=== PATIENT | male | born 1980 | race Two or more races ===

== ENCOUNTER 2018-12-29 04:41 | Emergency (ER) ==
[~2018-12-29] VITALS: Ht 167.6 cm; Wt 77.1 kg
--- NOTE | 2018-12-29 05:00 | NUR ---
BIBSELF FROM HOME. AAOX4. NAD. AMBULATORY. C/O SOB X 3 DAYS. PT REPORTS THE HE HAS DX OF ASTHMA SINCE HE WAS A CHILD. PT HAS BEEN USING HIS INHALER BUT IS INEEFECTIVE AND WORST TODAY. NOTED BILATERAL LUNG WHEEZING. NO ACCESSORY MUSCLE USING. PT UNABLE TO TOLERATE LYING DOWN, PT IS JUST SITTING. TO ER BED 4. MD AT BEDSIDE FOR EVAL. AWAITING EVAL
[2018-12-29] MEDS ORDERED: predniSONE 20 MG TABLET ONE (05:06)
[2018-12-29] MEDS ORDERED: ALBUTEROL FS 2.5 MG/3 ML VIAL.NEB ONE (05:10)
[2018-12-29] MEDS ORDERED: IPRATROPIUM NEB FS 0.5 MG/2.5 ML AMPUL.NEB ONE (05:10)
--- NOTE | 2018-12-29 05:10 | NUR ---
RT AT BEDSIDE FOR TX
--- NOTE | 2018-12-29 05:15 | NUR ---
EKG AT BEDSIDE
--- NOTE | 2018-12-29 05:16 | NUR ---
EKG ORDER CANCELLED BY
[2018-12-29] MEDS ORDERED: ALBUTEROL FS 2.5 MG/3 ML VIAL.NEB CONTNEB ONE ×2 (05:30→06:00)
[2018-12-29] MEDS ORDERED: predniSONE 20 MG TABLET PO ONE (05:30)
[2018-12-29] MEDS ORDERED: IPRATROPIUM NEB FS 0.5 MG/2.5 ML AMPUL.NEB NEB ONE ×2 (05:30→06:00)
--- NOTE | 2018-12-29 06:00 | NUR ---
PT REFUSED 2ND DOSE OF BREATHING TX. AWARE
[2018-12-29 06:40] VITALS: BP 137/73
== END 2018-12-29 07:00 | disposition home or self-care (01) ==
LOC: ER 04:43
DX: J45.901 Unspecified asthma with (acute) exacerbation (principal); F17.210 Nicotine dependence, cigarettes, uncomplicated; Z98.890 Other specified postprocedural states
CPT/HCPCS: 94644; 99285; J7512

== ENCOUNTER 2019-01-01 02:37 | Emergency (ER) | payer OTHER ==
[~2019-01-01] VITALS: Ht 167.6 cm; Wt 72.6 kg
--- NOTE | 2019-01-01 02:55 | NUR ---
PRESENTED TO THE ER W/ C/O SOB. NOTED WITH DRY COUGH, AFEBRILE. DENIED ANY OTHER SYMPTOM OR PMH. PLACED ON A MONITOR , SATTING 96% ON R/A. WILL CONT TO MONITOR ,
--- NOTE | 2019-01-01 03:00 | NUR ---
CALLED RT FOR BREATHING TX
[2019-01-01] MEDS: IPRATROPIUM NEB FS 0.5 MG/2.5 ML AMPUL.NEB NEB ONE (03:01)
[2019-01-01] MEDS: ALBUTEROL FS 2.5 MG/3 ML VIAL.NEB CONTNEB ONE (03:01)
[2019-01-01] MEDS ORDERED: ALBUTEROL FS 2.5 MG/3 ML VIAL.NEB ONE (03:05)
[2019-01-01] MEDS ORDERED: IPRATROPIUM NEB FS 0.5 MG/2.5 ML AMPUL.NEB ONE (03:05)
[2019-01-01] MEDS ORDERED: predniSONE 20 MG TABLET ONE (03:20)
[2019-01-01] MEDS ORDERED: predniSONE 10 MG TABLET ONE (03:20)
[2019-01-01] MEDS: predniSONE 20 MG TABLET PO ONE (03:21)
--- NOTE | 2019-01-01 04:20 | NUR ---
Patient discharged to home in stable condition. RX AND Written and verbal after care instructions given. Patient verbalizes understanding of instruction.
[2019-01-01 04:33] VITALS: BP 127/87
== END 2019-01-01 04:34 | disposition home or self-care (01) ==
LOC: ER 02:39
DX: J45.901 Unspecified asthma with (acute) exacerbation (principal); F15.10 Other stimulant abuse, uncomplicated; F17.200 Nicotine dependence, unspecified, uncomplicated; Z98.890 Other specified postprocedural states
CPT/HCPCS: 94640; 99283; 99406; J7512 ×2

== ENCOUNTER 2021-10-02 08:06 | Emergency (ER) | payer OTHER ==
[~2021-10-02] VITALS: Ht 167.6 cm; Wt 71.7 kg
--- NOTE | 2021-10-02 08:15 | NUR ---
SENT TO E RBED 11. SOB X 3 DAYS, HX OF ASTHMA. "MY INHALER IS NOT WORKING." PT OXYGEN SATURATION 97% ROOM AIR. ATTACHED TO MONITOR. AWAITING MD SYED.
--- NOTE | 2021-10-02 08:20 | NUR ---
IV ESTABLISHED L AC 20G. LABS DRAWN AND COLLECTED. CONVERTED TO SALINE LOCK.
--- NOTE | 2021-10-02 08:21 | NUR ---
COVID TEST COLLECTED AND SENT
[2021-10-02] MEDS ORDERED: predniSONE 20 MG TABLET ONE (08:45)
[2021-10-02] MEDS ORDERED: ALBUTEROL FS 2.5 MG/3 ML VIAL.NEB CONTNEB ONE (09:00)
[2021-10-02] MEDS ORDERED: predniSONE 20 MG TABLET PO ONE (09:00)
[2021-10-02] MEDS ORDERED: IPRATROPIUM NEB FS 0.5 MG/2.5 ML AMPUL.NEB NEB ONE (09:00)
--- NOTE | 2021-10-02 09:00 | NUR ---
X RAY AT BEDSIDE
[2021-10-02] MEDS ORDERED: ALBUTEROL FS 2.5 MG/3 ML VIAL.NEB ONE (09:16)
[2021-10-02] MEDS ORDERED: IPRATROPIUM NEB FS 0.5 MG/2.5 ML AMPUL.NEB ONE (09:16)
[2021-10-02] MEDS ORDERED: PRED20TA PO (11:09)
[2021-10-02 11:23] VITALS: BP 144/82
--- NOTE | 2021-10-02 11:23 | NUR ---
IV removed. Catheter intact and site benign. Pressure and 4x4 applied to site. No bleeding noted.Patient discharged to home in stable condition. Written and verbal after care instructions given. Patient verbalizes understanding of instruction.
== END 2021-10-02 11:24 | disposition home or self-care (01) ==
LOC: ER 08:08
DX: J45.901 Unspecified asthma with (acute) exacerbation (principal); Z20.822 Contact with and (suspected) exposure to COVID-19; Z87.891 Personal history of nicotine dependence
CPT/HCPCS: 71045; 87426; 94644; 94799; 99285; C9803; J7512

== ENCOUNTER 2022-01-11 06:42 | Emergency (ER) | payer OTHER ==
[~2022-01-11] VITALS: Ht 167.6 cm; Wt 79.4 kg
[~2022-01-11 06:42] MED LIST: PRED20TA PO
--- NOTE | 2022-01-11 06:50 | NUR ---
TO ER BED 6. BIBS C/O ASTHMA ATTACK, PT DID NOT TAKE PRESCRIBED MEDS. RECENTLY DISCHARGED FROM [facility]. AAOX4. AMBULATORY. CONNECTED TO MONITOR. O2 SAT NOTED AT 95 ROOM AIR. HR 139. AWAITING MD SYED
[2022-01-11] MEDS ORDERED: methylPREDNISolone SOD SUCC 125 MG/2ML VIAL ONE (06:53)
--- NOTE | 2022-01-11 06:56 | NUR ---
PT REFUSED EKG. NOTIFIED.
[2022-01-11] MEDS ORDERED: ALBUTEROL FS 2.5 MG/3 ML VIAL.NEB NEB ONE ×2 (07:00→08:00)
[2022-01-11] MEDS ORDERED: methylPREDNISolone SOD SUCC 125 MG/2ML VIAL IV ONE (07:00)
[2022-01-11 07:06] VITALS: BP 133/77
[2022-01-11] MEDS ORDERED: ALBUTEROL FS 2.5 MG/3 ML VIAL.NEB ONE ×2 (07:08→07:45)
--- NOTE | 2022-01-11 07:08 | NUR ---
rt at bedside
--- NOTE | 2022-01-11 07:08 | NUR ---
pt refused to have iv access.
--- NOTE | 2022-01-11 07:12 | NUR ---
PT REFUSED EKG PER MD.
[2022-01-11] MEDS ORDERED: LEVALBUTEROL HCL NEB 1.25 MG/0.5 ML VIAL.NEB IH ONE (07:30)
[2022-01-11] MEDS ORDERED: IPRATROPIUM NEB FS 0.5 MG/2.5 ML AMPUL.NEB ONE (07:45)
--- NOTE | 2022-01-11 07:58 | NUR ---
PT REFUSED TO HAVE A REPEAT EKG. PT ELOPED FROM ER, LAST SEEN AT [phone].
[2022-01-11] MEDS ORDERED: IPRATROPIUM NEB FS 0.5 MG/2.5 ML AMPUL.NEB NEB ONE (08:00)
== END 2022-01-11 07:55 | disposition left against medical advice (07) ==
LOC: ER 06:44
DX: J45.901 Unspecified asthma with (acute) exacerbation (principal); R00.0 Tachycardia, unspecified; J45.909 Unspecified asthma, uncomplicated; F17.210 Nicotine dependence, cigarettes, uncomplicated; Z79.52 Long term (current) use of systemic steroids
CPT/HCPCS: 93005; 94640 ×2; 96374; 99285; J2930

== ENCOUNTER 2022-06-17 06:57 | Emergency (ER) | payer OTHER ==
[~2022-06-17] VITALS: Ht 167.6 cm; Wt 77.1 kg
--- NOTE | 2022-06-17 07:15 | NUR ---
Received [id number] male walking in c/o sob and whezzing respiration spont and easy
--- NOTE | 2022-06-17 07:25 | NUR ---
HHN TX GIVEN BY RT
[2022-06-17] MEDS ORDERED: ALBUTEROL FS 2.5 MG/3 ML VIAL.NEB NEB ONE (07:30)
[2022-06-17] MEDS ORDERED: IPRATROPIUM NEB FS 0.5 MG/2.5 ML AMPUL.NEB NEB ONE (07:30)
[2022-06-17] MEDS ORDERED: predniSONE 20 MG TABLET PO ONE (07:30)
[2022-06-17] MEDS ORDERED: predniSONE 20 MG TABLET ONE ×2 (07:30→07:44)
[2022-06-17] MEDS ORDERED: ALBUTEROL FS 2.5 MG/3 ML VIAL.NEB ONE (07:31)
[2022-06-17] MEDS ORDERED: IPRATROPIUM NEB FS 0.5 MG/2.5 ML AMPUL.NEB ONE (07:31)
[2022-06-17] MEDS ORDERED: ALBU18HF2 INH (08:52)
[2022-06-17] MEDS ORDERED: PRED20TA PO (08:52)
[2022-06-17 08:58] VITALS: BP 118/79
--- NOTE | 2022-06-17 09:06 | NUR ---
Post RTx pt states "Feel lot better/breathing easier" Respiration even and unlabored. Patient discharged to home in stable condition. Written and verbal after care instructions given. Patient verbalizes understanding of instruction.
== END 2022-06-17 09:06 | disposition home or self-care (01) ==
LOC: ER 07:12
DX: J45.901 Unspecified asthma with (acute) exacerbation (principal); J45.909 Unspecified asthma, uncomplicated; F17.200 Nicotine dependence, unspecified, uncomplicated; Z79.52 Long term (current) use of systemic steroids
CPT/HCPCS: 99285; 94644; J7512 ×2

== ENCOUNTER 2022-08-03 22:30 | Emergency (ER) | payer OTHER ==
[~2022-08-03] VITALS: Ht 167.6 cm; Wt 77.1 kg
[~2022-08-03 22:30] MED LIST changes: +ALBU18HF2 INH
--- NOTE | 2022-08-04 | NUR ---
PATIENT BIBSELF C/O WANTS VOL PSYCH ADMIT, +SI -HI. VSS, NO ACUTE DISTRESS NOTED, WILL CONTINUE TO MONITOR.
--- NOTE | 2022-08-04 00:01 | NUR ---
[employer] MECHANIC AT PT'S BEDSIDE
[2022-08-04 01:29] LABS: BILIRUBIN,URINE NEGATIVE (NEGATIVE); COLOR,URINE YELLOW (YELLOW); LEUKOCYTE ESTERASE ,URINE NEGATIVE (NEGATIVE); NITRITE, URINE NEGATIVE (NEGATIVE); PH,URINE 6.5 (5.0-8.0); PROTEIN,URINE NEGATIVE (NEGATIVE); UGLUCOSE NEGATIVE (NEGATIVE); UROBILINOGEN,URINE 0.2 EU/dL (0.2)
[2022-08-04 01:34] LABS: BACTERIA,URINE Rare /HPF (None Seen); RBC,URINE 0-2 /HPF (0-2); SQUAMOUS EPITHELIAL CELL,UR Few /HPF (None Seen); WBC,URINE 0-2 /HPF (0-3)
[2022-08-04 02:23] LABS: BASOPHILS % (AUTO) 0.5 % (0.0-2.0); EOSINOPHILS % (AUTO) 7.4 % (0.0-6.0); HEMATOCRIT 43 % (39-51); HEMOGLOBIN 14.2 g/dL (13.5-17.5); LYMPHOCYTES # (AUTO) 1.1 K/uL (0.8-4.8); LYMPHOCYTES % (AUTO) 11.6 % (20.0-44.0); MEAN CORPUSCULAR HGB CONC 33 g/dl (31.0-36.0); MEAN CORPUSCULAR VOLUME 92 fL (80-96); MONOCYTES # (AUTO) 0.7 K/uL (0.1-1.30); MONOCYTES % (AUTO) 7.5 % (2.0-12.0); NEUTROPHILS # (AUTO) 7.1 K/uL (1.8-8.9); PLATELET COUNT (AUTO) 297 K/uL (150-450); RED BLOOD CELL COUNT(AUTO) 4.67 MIL/uL (4.5-6.0); WHITE BLOOD COUNT (AUTO) 9.8 K/uL (4.3-11.0)
[2022-08-04 02:33] LABS: CALCIUM, SERUM 9.1 mg/dL (8.5-10.1); CARBON DIOXIDE 29 mmol/L (21-32); CHLORIDE 101 mmol/L (98-107); CREATININE 1.1 mg/dL (0.6-1.3); GLUCOSE 88 mg/dL (74-106); POTASSIUM 3.4 mmol/L (3.5-5.1); SODIUM SERUM 139 mmol/L (136-145); UREA NITROGEN, BLOOD 14 mg/dL (7-18)
[2022-08-04 02:45] LABS: ALANINE AMINOTRANSFERASE 26 U/L (12-78); ALBUMIN 4.2 g/dL (3.4-5.0); ALCOHOL, BLOOD < 3 mg/dL (0-0); ALKALINE PHOSPHATASE 71 U/L (46-116); ASPARTATE AMINOTRANSFERASE 21 U/L (15-37); BILIRUBIN,DIRECT 0.2 mg/dL (0.0-0.2); BILIRUBIN,TOTAL 0.8 mg/dL (0.2-1.0); TOTAL PROTEIN, SERUM 7.9 g/dL (6.4-8.2)
[2022-08-04 02:49] LABS: ACETAMINOPHEN 0 ug/ml (10-30)
--- NOTE | 2022-08-04 04:32 | NUR ---
PATIENT ACCEPTED AT [facility] UNDER DR DRIVER REPORT GIVEN TO NURSE GUI [phone]
--- NOTE | 2022-08-04 04:45 | NUR ---
[facility] CALLED FOR BLS TO @[phone]
[2022-08-04 08:15] VITALS: BP 110/66
--- NOTE | 2022-08-04 08:17 | NUR ---
TRANSPORTED TO [facility] IN STABLE CONDITION.
== END 2022-08-04 08:19 ==
LOC: ER 22:34
DX: R45.851 Suicidal ideations (principal); F19.10 Other psychoactive substance abuse, uncomplicated; Z59.00 Homelessness unspecified; J45.909 Unspecified asthma, uncomplicated; Z87.828 Personal history of other (healed) physical injury and trauma
CPT/HCPCS: 99285; 81001; 36415; 80307; 85025; 80048; 80076; 87426; 80143; 80320; C9803; G0480